=== PATIENT | male | born 1960 ===

== ENCOUNTER 2024-08-09 05:05 | Day surgery (SDC) | payer OTHER ==
[2024-08-02 07:26] VITALS: BP 158/92
[2024-08-02 07:54] LABS: MEAN CELL VOLUME 99.2 fL (80.0-100.00); MEAN CORPUSCULAR HEMOGLOBIN 33.1 pg (27.00-32.0); MEAN CORPUSCULAR HGB CONC 33.4 g/dl (32.0-36.0); PLATELET COUNT 230 K/uL (150-450); RED BLOOD COUNT 3.94 M/uL (4.00-6.00)
[2024-08-02 07:57] LABS: PH,URINE 6.5 (5.0-8.0); URINE APPEARANCE Clear; URINE BILIRRUBIN Negative (NEGATIVE); URINE BLOOD Negative; URINE COLOR Yellow; URINE GLUCOSE Negative (NEGATIVE); URINE KETONE Negative (NEGATIVE); URINE LEUKOCYTE Negative; URINE NITRATE Negative; URINE PROTEIN Negative (NEGATIVE); URINE UROBILINOGEN 0.2 E.U./dl
[2024-08-02 08:31] LABS: PARTIAL THROMBOPLASTIN TIME 23.9 SECONDS (22.0-34.0); PROTHROMBIN TIME 10.9 SECONDS (9.0-11.5)
[2024-08-02 08:48] LABS: ALBUMIN 4.2 gm/dL (3.4-5.0); BILIRUBIN TOTAL 0.39 mg/dL (0.3-1.2); CALCIUM 9.3 mg/dL (8.5-10.1); CREATININE SERUM 0.89 mg/dL (0.70-1.30); GFR 86.06; GLOBULINA 3.2 G/DL (2.4-3.5); POTASSIUM 4.42 mEq/L (3.5-5.1); TOTAL PROTEIN 7.4 gm/dL (6.4-8.2); TSH 2.83 uIU/mL (0.358-3.74)
[2024-08-02 09:01] LABS: URINE BACTERIA 0 uL (0.0-1933); URINE WBC 0.3 uL (0.0-23.2)
[~2024-08-09] VITALS: Ht 172.7 cm; Wt 88.5 kg
[~2024-08-09 05:05] MED LIST: LEVOTHYROXINE25 MCG PO; LIPITOR20 MG PO; LOSARTAN POTASS50 MG PO; METFORMIN HCL1000 M2 PO; NORVASC5 MG PO
[2024-08-09] MEDS ORDERED: CEFAZOLIN SODIUM 1,000 MG VIAL ONE ×2 (08:10→12:33)
[2024-08-09] MEDS ORDERED: CEFAZOLIN SODIUM 1,000 MG VIAL IV SCH (12:15)
[2024-08-09] MEDS ORDERED: FAMOTIDINE/PF 20 MG/10 ML SYRINGE IV SCH (12:15)
[2024-08-09] MEDS ORDERED: FAMOTIDINE/PF 20 MG/2 ML VIAL ONE (12:33)
== END 2024-08-09 14:30 | disposition home or self-care (01) ==
LOC: CIR.AMB 05:05
PROVIDERS: ATTEND Specialist
DX: K40.90 Unilateral inguinal hernia, without obstruction or gangrene, not specified as recurrent (principal)